=== PATIENT | female | born 1985 | race Two or more races ===

== ENCOUNTER 2023-06-02 14:12 | Outpatient (REF) | payer MEDICAID, OTHER, SELFPAY ==
[2023-06-02 18:05] LABS: MANUAL DIFF FLAG NO
[2023-06-02 18:07] LABS: Basophils Absolute Auto 0.1 X10*3/uL (0.0-0.2); Basophils Percent Auto 0.4 % (0-2); Eosinophils Absolute Auto 0.1 X10*3/uL (0.0-0.4); Eosinophils Percent Auto 0.6 % (0-4); Hemoglobin 13.3 g/dl (12.0-16.0); Imm Gran Abs Auto 0.04 X10*3/uL (0.00-0.03); Imm Gran Pct Auto 0.4 % (0.0-0.4); Lymphocytes Absolute Auto 2.1 X10*3/uL (1.2-4.9); Lymphocytes Percent Auto 18.6 % (20-40); Mean Corpuscular HGB Conc 33.3 g/dl (31.0-35.0); Mean Corpuscular Hemoglobin 29.2 pg (27.0-33.0); Mean Corpuscular Volume 87.9 fL (80.0-98.0); Mean Platelet Volume 11.2 fL (9.4-12.3); Monocytes Absolute Auto 0.7 X10*3/uL (0.1-1.2); Monocytes Percent Auto 5.8 % (2-11); Neutrophils Absolute Auto 8.5 x10*3/uL (2.0-8.3); Neutrophils Percent Auto 74.2 % (45-73); Platelet Count 252 X10*3/uL (160-400); Red Blood Count 4.55 X10*6/uL (4.20-5.50); Red Cell Distribution Width 13.1 % (11.0-16.0); White Blood Count 11.4 X10*3/uL (4.8-10.8)
[2023-06-02 18:22] LABS: Creatinine Urine 138.04 mg/dL; Microalbum/Creatinine Ratio Ur 8.6 ug/mg cr (<30)
[2023-06-02 18:37] LABS: Alanine Aminotransferase 26 U/L (0-31); Albumin Level 4.2 g/dL (3.5-5.0); Alkaline Phosphatase 70 U/L (39-117); Anion Gap 11 (12-20); Aspartate Amino Transferase 22 U/L (5-31); Bilirubin Total 0.3 mg/dL (0.0-1.0); Blood Urea Nitrogen 16 mg/dL (9-16); Carbon Dioxide 24 mmol/L (22-29); Chloride 107 mmol/L (96-108); Cholesterol 169 mg/dL (<200); Estimated Glomerular Filt Rate > 60; Glucose Random 85 mg/dL (60-115); HDL Cholesterol 47 mg/dL (>40); LDL Cholesterol Calculated 91 mg/dL (<100); Potassium 3.6 mmol/L (3.3-5.1); Sodium 138 mmol/L (135-145); Total Protein 7.2 g/dL (6.5-8.0); Triglycerides 155 mg/dL (<150)
[2023-06-02 18:53] LABS: TSH reflex Free T4 0.92 uIU/mL (0.32-4.0)
[2023-06-03 04:35] LABS: HIV AB/AG Nonreactive (Nonreactive); HIV Num 1 0.04 S/CO (0.00-0.99); ~HepC Num1 0.09 S/CO (0.00-0.79); ~Hepatitis C Antibody Nonreactive (Nonreactive)
== END 2023-06-02 14:13 | disposition home or self-care (01) ==
LOC: HO.CHCLDS 14:12
PROVIDERS: Visit Provider Family Medicine
DX: I10 Essential (primary) hypertension (principal); Z13.30 Encounter for screening examination for mental health and behavioral disorders, unspecified
CPT/HCPCS: 36415; 80053; 80061; 82043; 82570; 84443; 85025; 86803; 87389

== ENCOUNTER 2023-10-24 11:24 | Outpatient (REF) | payer MEDICAID, OTHER, SELFPAY ==
[2023-10-24 14:20] LABS: HCG Quantitative < 2 mIU/mL
[2023-10-31 12:49] LABS: HPV mRNA E6/E7 rflx Not Detected (Not Detected)
== END 2023-10-24 11:25 | disposition home or self-care (01) ==
LOC: HO.CHCLDS 11:24
PROVIDERS: Visit Provider Family Medicine
DX: N92.6 Irregular menstruation, unspecified (principal); Z12.4 Encounter for screening for malignant neoplasm of cervix
CPT/HCPCS: 36415; 84702; 87624; 88142

== ENCOUNTER 2023-11-27 13:59 | Outpatient (REF) | payer MEDICAID, OTHER, SELFPAY ==
[2023-11-27 16:09] LABS: HCG Quantitative < 2 mIU/mL; TSH reflex Free T4 0.95 uIU/mL (0.32-4.0)
[2023-11-28 04:08] LABS: CT PCR NOT DETECTED (Not Detect.); NG PCR NOT DETECTED (Not Detect.)
[2023-11-28 09:04] LABS: Follicle Stimulating Hormone 41.7 mIU/mL; Lutenizing Hormone 37.3 mIU/mL; Prolactin 6.2 ng/mL
[2023-11-28 10:40] LABS: Bacterial Vaginosis PCR POSITIVE (Negative); Candida Group PCR NOT DETECTED (Not Detect); Candida glab krusei PCR NOT DETECTED (Not Detect); Trichomonas vaginalis PCR NOT DETECTED (Not Detect)
== END 2023-11-27 14:00 | disposition home or self-care (01) ==
LOC: HO.CHCLDS 13:59
PROVIDERS: Visit Provider Family Medicine
DX: R01.2 Other cardiac sounds (principal); N92.6 Irregular menstruation, unspecified
CPT/HCPCS: 0352U; 0353U; 36415; 83001; 83002; 84146; 84443; 84702